=== PATIENT | male | born 1955 | race Caucasian/White ===

== ENCOUNTER 2019-01-27 12:16 | Observation (INO) ==
[2019-01-27 15:35] VITALS: BMI 28.5
[2019-01-27 15:45] LABS: ALANINE AMINOTRANSFERASE 17 Units/L (12-78); ALBUMIN 3.7 g/dL (3.4-5.0); ALKALINE PHOSPHATASE 56 Units/L (46-116); ASPARTATE AMINO TRANSFERASE 17 Units/L (15-37); BLOOD UREA NITROGEN 11 mg/dL (7-18); CALCIUM 8.9 mg/dL (8.5-10.1); CARBON DIOXIDE 26.9 mmol/L (21-32); CHLORIDE 104 mmol/L (98-107); CREATININE 0.92 mg/dL (0.70-1.30); SODIUM 139 mmol/L (136-145); TOTAL PROTEIN 6.8 g/dL (6.4-8.2); eGFR NON BLACK RACES > 60 (>60)
[2019-01-27 15:58] LABS: CKMB % 2.9 % (<4); TROPONIN I 0.38 ng/mL (0-1.5)
[2019-01-27 16:15] LABS: BASOPHILS % (AUTO) 0.3 % (0.2-1.0); EOSINOPHILS # (AUTO) 0.1 x10^3/uL (0.0-0.2); EOSINOPHILS % (AUTO) 2.3 % (0.9-2.9); HEMATOCRIT 36.5 % (42.0-54.0); HEMOGLOBIN 12.8 g/dL (13.5-18.0); LYMPHOCYTES # (AUTO) 1.1 X10^3/uL (1.3-2.9); LYMPHOCYTES % (AUTO) 26.8 % (21.0-51.0); MEAN CORPUSCULAR HEMOGLOBIN 32.2 pg (27.0-34.0); MEAN CORPUSCULAR HGB CONC 35.1 g/dL (33.0-35.0); MEAN CORPUSCULAR VOLUME 91.8 fL (80.0-100.0); MEAN PLATELET VOLUME 8.8 fL (7.4-11.0); MONOCYTES # (AUTO) 0.4 x10^3/uL (0.3-0.8); MONOCYTES % (AUTO) 8.9 % (0.0-13.0); NEUTROPHILS # (AUTO) 2.6 x10^3/uL (2.2-4.8); NEUTROPHILS % (AUTO) 61.7 % (42.0-75.0); PLATELET COUNT 176 X10^3/uL (150.0-450.0); RED BLOOD COUNT 3.97 X10^6/uL (4.7-6.0); WHITE BLOOD COUNT 4.2 X10^3/uL (3.6-10.0)
[2019-01-27] MEDS: NS 1000 ML 1,000 ML IV SCH (16:15)
[2019-01-27] MEDS: PROTONIX INJ 40 MG VIAL IVP SCH (16:15)
--- NOTE | 2019-01-27 17:38 | RAD ---
Chest PA and lateral Indication: Dyspnea Findings: There is no pneumothorax. Cardiomegaly is noted. COPD and hyperinflation noted with scarring in the lung bases. Cervical spine hardware noted. There is left mid lung nodule, possibly granulomatous or due to overlapping vessels. However, follow-up will be needed to exclude lesion Impression: 1. Cardiomegaly and COPD. Mild bronchitis possible 2. Vague left lung nodule, possibly granuloma given increased density although overlapping bones may be accentuating this. Nonemergent follow-up is recommended to exclude neoplasia. Outpatient CT chest follow-up recommended. Reported By:
[2019-01-27 19:42] LABS: CKMB % 3.4 % (<4); CREATINE KINASE MB 2.1 ng/mL (0-4.0); TROPONIN I 0.28 ng/mL (0-1.5)
[2019-01-27 23:41] LABS: CKMB % 2.5 % (<4); CREATINE KINASE MB 1.4 ng/mL (0-4.0); TROPONIN I 0.24 ng/mL (0-1.5)
[2019-01-28] MEDS: NS 1000 ML 1,000 ML IV SCH ×2 (01:09→06:16)
[2019-01-28 05:34] LABS: BASOPHILS % (AUTO) 0.5 % (0.2-1.0); EOSINOPHILS # (AUTO) 0.2 x10^3/uL (0.0-0.2); EOSINOPHILS % (AUTO) 3.8 % (0.9-2.9); HEMATOCRIT 35.8 % (42.0-54.0); HEMOGLOBIN 12.5 g/dL (13.5-18.0); LYMPHOCYTES # (AUTO) 1.4 X10^3/uL (1.3-2.9); MEAN CORPUSCULAR HEMOGLOBIN 32.4 pg (27.0-34.0); MEAN CORPUSCULAR VOLUME 92.5 fL (80.0-100.0); MEAN PLATELET VOLUME 8.7 fL (7.4-11.0); MONOCYTES # (AUTO) 0.4 x10^3/uL (0.3-0.8); MONOCYTES % (AUTO) 9.3 % (0.0-13.0); NEUTROPHILS % (AUTO) 50.4 % (42.0-75.0); PLATELET COUNT 157 X10^3/uL (150.0-450.0); RED BLOOD COUNT 3.88 X10^6/uL (4.7-6.0); RED CELL DISTRIBUTION WIDTH 13.1 % (11.6-16.5); WHITE BLOOD COUNT 3.9 X10^3/uL (3.6-10.0)
[2019-01-28 05:35] LABS: ALANINE AMINOTRANSFERASE 16 Units/L (12-78); ALBUMIN 3.3 g/dL (3.4-5.0); ALKALINE PHOSPHATASE 51 Units/L (46-116); ASPARTATE AMINO TRANSFERASE 16 Units/L (15-37); BLOOD UREA NITROGEN 9 mg/dL (7-18); CALCIUM 8.5 mg/dL (8.5-10.1); CARBON DIOXIDE 25.7 mmol/L (21-32); CHLORIDE 107 mmol/L (98-107); COR CA(FOR HYPOALB) 9.1 mg/dL (8.5-10.1); CREATININE 0.95 mg/dL (0.70-1.30); SODIUM 140 mmol/L (136-145); TOTAL PROTEIN 6.3 g/dL (6.4-8.2); eGFR NON BLACK RACES > 60 (>60)
[2019-01-28] MEDS ORDERED: TYLENOL 325 MG TAB PO PRN (06:43)
[2019-01-28] MEDS: PROTONIX INJ 40 MG VIAL IVP SCH (08:17)
[2019-01-28] MEDS ORDERED: HYZAAR 50/12.5 MG PO SCH ×2 (09:00→13:00)
[2019-01-28] MEDS ORDERED: PHARMACY CONSULT - DOSE _____ XX SCH (13:00)
[2019-01-28] MEDS ORDERED: NexIUM PO SCH (13:00)
[2019-01-28 13:41] VITALS: BP 129/64
--- NOTE | 2019-02-11 10:07 | DR.CARTERS ---
Short Stay Summary - Admission Date Date of Admission: 01/27/19 - Discharge Date Discharge Date: 01/28/19 - Admission Diagnoses (1) Chest pain, rule out acute myocardial infarction Status: Acute - Hospital Course Hospital Course: IS A 63 YEAR OLD PATIENT OF OURS WHO WAS A DIRECT ADMISSION DUE TO COMPLAINTS OF CHEST PAIN. ON ARRIVAL, VITALS WERE NOTED TO BE 98.5-65-20-97%-132/66. LABS WERE OBTAINED. ABNORMAL LAB VALUES WERE: RBC 3.97, HGB 12.8, HCT 36.5, GLUCOSE 101. CARDIAC ENZYMES WERE WITHIN NORMAL LIMITS. EKG REVEALED: SINUS RHYTHM WITH HR 58. A CHEST XRAY WAS OBTAINED AND REVEALED: Cardiomegaly and COPD. Mild bronchitis possible. Vague left lung nodule, possibly granuloma given increased density although overlapping bones may be accentuating this. Nonemergent follow-up is recommended to exclude neoplasia. Outpatient CT chest follow-up recommended. WE PLANNED TO OBTAIN SERIAL CARDIAC ENZYMES AND EKGs. WE STARTED NORMAL SALINE AT 75ML/HR AND RESUME HOME MEDICA TIONS. OTHERWISE, WE PLANNED TO FOLLOW UP WITH AM LABS AND CONTINUE TO MONITOR. ON THE MORNING FOLLOWING ADMISSION, PATIENT IS ALERT AND ORIENTED, LYING IN BED ON MORNING ROUNDS. HE DENIES PAIN OR SHORTNESS OF BREATH THIS MORNING. ON EXAMINATION, HEART IS REGULAR IN RATE AND RHYTHM. BILATERAL LUNGS ARE CLEAR TO AUSCULTATION. ABDOMEN IS ROUND, SOFT, AND NON-TENDER WITH NORMAL BOWEL SOUNDS NOTED IN ALL QUADRANTS. HIS VITALS THIS MORNING ARE 97.7-57-18-96%-134/84. LABS WERE OBTAINED. ABNORMAL LAB VALUES INCLUDE THE FOLLOWING: RBC 3.88, HGB 12.5, HCT 35.8, GUCOSE 103, TOTAL PROTEIN 6.3, ALBUMIN 3.3. CARDIAC ENZYMES AND EKGS HAVE BEEN WITHIN NORMAL LIMITS. ECHO OBTAINED AND REVEALED AN EJECTION FRACTION OF 59%, MILD LEFT VENTRICULAR HYPERTROPHY. WE PLANNED FOR DISCHARGE. INSTRUCTIONS FOR MEDICATIONS AND FOLLOW UP WERE DISCUSSED WITH PATIENT AND FAMILY. THEY VERBALIZED UNDERSTANDING OF ALL ORDERS. HE WAS DISCHARGED HOME IN STABLE CONDITION WITH FAMILY, WITH A NEW PRESCRIPTION FOR ECOTRIN 81MG PO DAILY AND A REFILL OF HIS LOSARTAN-HCT 50-12.5 DAILY. HE IS INSTRUCTED TO FOLLOW UP IN THE OFFICE ON ONE WEEK. - Discharge Medications Discharge Medications: Home Medication List losartan-hydrochlorothiazide 1 tab PO QDAY 01/27/19 [History] aspirin 81 mg PO QDAY #90 tab 01/28/19 [Rx] esomeprazole magnesium [Nexium] 40 mg PO QDAY #30 cap 01/28/19 [Rx] losartan-hydrochlorothiazide 1 tab PO DAILY #30 tab 01/28/19 [Rx] Prescriptions: aspirin Abdi Teixeira esomeprazole magnesium [Nexium] Abdi Teixeira losartan-hydrochlorothiazide Abdi Teixeira Prescription drug monitoring program results: PDMP reviewed and no concerns identified - Discharge Plan Disposition: HOME, SELF-CARE Condition: Stable Prescriptions: aspirin 81 mg PO QDAY #90 tab esomeprazole magnesium [Nexium] 40 mg PO QDAY #30 cap losartan-hydrochlorothiazide 1 tab PO DAILY #30 tab - Follow up/Referrals Follow up/Referrals: Abdi Teixeira [Primary Care Provider] - 1 WEEK - Instructions Instructions: Heartburn, [id number], Nonspecific Chest Pain, [id number], Angina Pectoris, [id number] Additional Instructions: DIET TOLERATED. ACTIVITY TOLERATED. Forms: Patient Portal
== END 2019-01-28 15:55 | disposition home or self-care (01) ==
LOC: MED/SURG
PROVIDERS: ADMIT Internal Medicine; ATTEND Internal Medicine
DX: J20.8 Acute bronchitis due to other specified organisms; I51.7 Cardiomegaly; R07.89 Other chest pain
CPT/HCPCS: 36415; 71020; 71046; 80053; 82550; 82553; 84484; 85025; 93005; 93306; 96367; 96374; A4222; C9113; G0378; J3490; J7030